=== PATIENT | female | born 1950 | race American Indian/Alaskan Native ===

== ENCOUNTER 2017-12-24 15:47 | Emergency (ER) | payer OTHER, BC ==
[2017-12-24 15:55] VITALS: BP 151/87; PULSE 98; TEMP 98.5; BMI 26.5
--- NOTE | 2017-12-24 15:55 | PDOC ---
Rapid Medical Evaluation Time Seen by Provider: 12/24/17 15:53 Medical Evaluation: Allergies Allergy/AdvReac Type Severity Reaction Status Date / Time No Known Drug Allergies Allergy Verified 12/24/17 15:52 12/24/17 15:53 The patient presents with a chief complaint of: L back/side pain. Pt. states currently being treated for an upper respiratory infection and states that she has been coughing a lot. Productive cough. Took two percocet with some relief of the pain. Denies dysuria I have performed a brief in-person evaluation of this patient; Pertinent physical exam findings: ambulatory, in no respiratory distress, TTP L mid back/side. No CVA tenderness I have ordered the following: Nothing The patient will proceed to the ED for further evaluation.
--- NOTE | 2017-12-24 16:59 | PDOC ---
History of Present Illness - General Chief Complaint: Pain Stated Complaint: PAIN/ BACK, SIDE Time Seen by Provider: 12/24/17 15:53 History Source: Patient Exam Limitations: No Limitations - History of Present Illness Initial Comments: 12/24/17 16:54 Patient is a 67-year-old female with history of high cholesterol, anemia and asthma reports having productive cough for 5 days was seen at PMD started on Augmentin and prednisone tapered dose for 5 days patient reports increased coughing and developed pain to left lateral ribs reproduced with movement. Patient denies any pain at rest, no shortness of breath, no chest pain. Has increased cough and when coughing has to brace side. Denies any trauma. Allergies: No known allergies Medications: See medication list Family History: Non-contributory Social History: Denies smoking, alcohol use, or IVDU Review of Systems GENERAL/CONSTITUTIONAL: [No fever or chills. No weakness. No weight change.] HEAD, EYES, EARS, NOSE AND THROAT: [No change in vision. No ear pain or discharge. No sore throat. ] CARDIOVASCULAR: [No chest pain or shortness of breath.] RESPIRATORY: Moist cough, no wheezing, or hemoptysis.] GASTROINTESTINAL: [No nausea, vomiting, diarrhea or constipation. No rectal bleeding.] GENITOURINARY: [No dysuria, frequency, or change in urination.] MUSCULOSKELETAL: [No joint or muscle swelling or pain. No neck or back pain. There is left lateral torso pain, palpation of pain to ribs] SKIN AND BREASTS: [No rash or easy bruising.] NEUROLOGIC: [No headache, vertigo, loss of consciousness, or loss of sensation.] PSYCHIATRIC: [No depression or anxiety.] ENDOCRINE: [No increased thirst. No abnormal weight change.] HEMATOLOGIC/LYMPHATIC: [No anemia, easy bleeding, or history of blood clots.] ALLERGIC/IMMUNOLOGIC: [No hives or skin allergy. No latex allergy.] Physical Exam: GENERAL: [The patient is awake, alert, and fully oriented, in no acute distress. ] HEAD: [Normal with no signs of trauma.] EYES: [Pupils equal, round and reactive to light, extraocular movements intact, sclera anicteric, conjunctiva clear.] ENT: [Ears normal, nares patent, oropharynx clear without exudates. Moist mucous membranes. No uvula deviation] NECK: [Normal range of motion, supple without lymphadenopathy, JVD, or masses.] LUNGS: [Rhonchi, noted on examination no wheezing, no crackles. Decreased at left base. HEART: [Regular rate and rhythm, normal S1 and S2 without murmur, rub or gallop. ] ABDOMEN: [Soft, nontender, normoactive bowel sounds. No guarding, no rebound. No masses. No bruising or abrasions] MUSCULOSKELETAL: [Normal range of motion, no edema. No clubbing or cyanosis. No cords, erythema, or tenderness. No CVA Tenderness with fist outpatient, pain to left lateral ribs on palpation during examination..] NEUROLOGICAL: [Cranial nerves II through XII grossly intact. Normal speech, normal gait.] SKIN: [Warm, Dry, normal turgor, no rashes or lesions noted.] Past History - Past Medical History Allergies/Adverse Reactions: Allergies Allergy/AdvReac Type Severity Reaction Status Date / Time No Known Drug Allergies Allergy Verified 12/24/17 15:52 Home Medications: Ambulatory Orders Ascorbate Calcium [Vitamin C] 1,000 mg PO DAILY PRN 05/29/16 Calcium Carbonate/Vitamin D3 [Calcium 600-Vit D3 200 Tablet] 1 each PO DAILY 11/12 Fluticasone/Salmeterol [Advair 250-50 Diskus] 1 each IH BID 05/29/16 Multivit-Min/FA/Lycopen/Lutein [Centrum Silver Tablet] 1 each PO DAILY 05/29/16 Simvastatin [Zocor -] 10 mg PO HS 06/24/16 Ferrous Sulfate [Feosol] 325 mg PO BID PRN 06/26/17 Albuterol Sulfate Inhaler - [Ventolin HFA Inhaler -] 1 - 2 inh PO Q4H #1 inhaler 12/24/17 Azithromycin [Zithromax 250mg Tablets -] 250 mg PO UTDICT #6 tab 12/24/17 Prednisone [Deltasone] 20 mg PO DAILY #5 tablet 12/24/17 Promethazine HCl [Phenergan Plain 6.25 MG/5 ML -] 5 ml PO QID #40 ml 12/24/17 Anemia: Yes Asthma: Yes Cancer: No Cardiac Disorders: No CVA: No COPD: No CHF: No Dementia: No Diabetes: No GI Disorders: No Disorders: No HTN: No Hypercholesterolemia: Yes Liver Disease: No Seizures: No Thyroid Disease: No - Surgical History Abdominal Surgery: Yes (colon) Appendectomy: No Cardiac Surgery: No Cholecystectomy: No Lung Surgery: No Neurologic Surgery: No Orthopedic Surgery: No - Suicide/Smoking/Psychosocial Hx Smoking Status: No Smoking History: Never smoked Have you smoked in the past 12 months: No Number of Cigarettes Smoked Daily: 0 Information on smoking cessation initiated: No Hx Alcohol Use: No Drug/Substance Use Hx: No Substance Use Type: None Hx Substance Use Treatment: No *Physical Exam - Vital Signs Last Vital Signs Temp Pulse Resp BP Pulse Ox 98.5 F 98 H 18 151/87 100 12/24/17 15:52 12/24/17 15:52 12/24/17 15:52 12/24/17 15:52 12/24/17 15:52 ED Treatment Course - RADIOLOGY Radiology Studies Ordered: Category Date Time Status CHEST PA & LAT [RAD] Stat Radiology 12/24/17 16:46 Ordered RIBS-LEFT SIDE [RAD] Stat Radiology 12/24/17 16:46 Ordered Medical Decision Making - Medical Decision Making 12/24/17 16:59 A/P: Patient with cough, now with left lateral torso pain, rib pain only reproducible with coughing and movement. Will perform x-ray of chest rule out pneumonia and rib x-ray to rule out fracture. Urinalysis assess for blood. 12/24/17 18:57 X-rays negative for acute fracture no cardiopulmonary disease. Combivent given, Toradol for pain, will reevaluate Patient reports decreased pain after Toradol will DC patient on azithromycin. Motrin for pain, albuterol inhaler, promethazine for cough. Will change prednisone to 20 mg by mouth daily for 5 days. I discussed the physical exam findings, ancillary test results and final diagnoses with the patient. I answered all of the patient's questions. The patient was satisfied with the care received and felt comfortable with the discharge plan and treatment plan. The patient will call Wednesday to arrange follow-up and will return to the Emergency Department with any new, persistent or worsening symptoms. *DC/Admit/Observation/Transfer Diagnosis at time of Disposition: Musculoskeletal pain, Cough - Discharge Dispostion Disposition: HOME Condition at time of disposition: Stable Admit: No - Prescriptions Prescriptions: Albuterol Sulfate Inhaler - [Ventolin HFA Inhaler -] 1 - 2 inh PO Q4H #1 inhaler Azithromycin [Zithromax 250mg Tablets -] 250 mg PO UTDICT #6 tab Prednisone [Deltasone] 20 mg PO DAILY #5 tablet Promethazine HCl [Phenergan Plain 6.25 MG/5 ML -] 5 ml PO QID #40 ml - Referrals Referrals: Chuck Ho MD [Primary Care Provider] - - Patient Instructions - Post Discharge Activity
[2017-12-24 17:07] LABS: URINE APPEARANCE CLEAR; URINE BILIRUBIN NEGATIVE (<2.0 mg/dL); URINE BLOOD NEGATIVE (NEGATIVE); URINE COLOR YELLOW; URINE GLUCOSE (UA) 3+ (NEGATIVE); URINE KETONE TRACE (NEGATIVE); URINE LEUK ESTERASE NEGATIVE (NEGATIVE); URINE NITRITE NEGATIVE (NEGATIVE); URINE PROTEIN NEGATIVE (NEGATIVE); URINE UROBILINOGEN NEGATIVE mg/dL (0.2-1.0)
[2017-12-24] MEDS ORDERED: KETOROLAC TROMETHAMINE 60 MG/2 ML VIAL IM ONE (18:43)
[2017-12-24] MEDS ORDERED: KETOROLAC TROMETHAMINE 60 MG/2 ML VIAL ONE (18:49)
[2017-12-24] MEDS ORDERED: ALBUTEROL SO4 2.5/IPRATROPIUM 0.5 INH SOL 3 ML VIAL.NEB. NEB ONE (18:56)
== END 2017-12-24 19:55 | disposition home or self-care (01) ==
LOC: JERFT 15:47
PROC: 3E0333Z Introduction of Anti-inflammatory into Peripheral Vein, Percutaneous Approach (ICD-10-PCS; principal; 2017-12-24)
PROC: 3E0F7GC Introduction of Other Therapeutic Substance into Respiratory Tract, Via Natural or Artificial Opening (ICD-10-PCS; 2017-12-24)
DX: R05 Cough (principal)
CPT/HCPCS: 71046-TC-FY; 71101-TC-FY; 81003; 94640; 96373; 99281-25

== ENCOUNTER 2021-03-07 04:41 | Day surgery (SDC) | payer OTHER, BC ==
[2021-03-04 12:38] VITALS: BMI 25.1
[2021-03-07] MEDS ORDERED: DESFLURANE GAS 240 ML BOTTLE IH ONE (06:53)
[2021-03-07] MEDS ORDERED: ACETAMINOPHEN INJECTION 100 ML IVPB ONE ×2 (06:53→09:23)
[2021-03-07] MEDS ORDERED: ceFAZolin SODIUM 1 GM VIAL ONE ×2 (07:01→09:14)
[2021-03-07] MEDS ORDERED: LIDOCAINE HCL/PF 2% SDV 5ML VIAL ONE ×2 (07:01→09:14)
[2021-03-07] MEDS ORDERED: LIDOCAINE HCL 2% JELLY (5 ML/TUBE) ONE ×2 (07:01→09:14)
[2021-03-07] MEDS ORDERED: ROCURONIUM BROMIDE 50 MG/5 ML SYRINGE ONE (07:03)
[2021-03-07] MEDS ORDERED: PROPOFOL 20 ML ONE ×3 (07:03)
[2021-03-07] MEDS ORDERED: SUCCINYLCHOLINE CHLORIDE 200 MG/10 ML SYRINGE ONE ×2 (07:03→08:42)
[2021-03-07] MEDS ORDERED: EPHEDRINE SULFATE/0.9% NACL/PF 50 MG/10 ML SYRINGE NR ONE ×2 (07:03→08:42)
[2021-03-07] MEDS ORDERED: NEOSTIGMINE METHYLSULFATE 0.5 MG/ML - 10 ML MDV ONE (07:04)
[2021-03-07] MEDS ORDERED: fentaNYL CITRATE 250 MCG/5 ML VIAL ONE (07:06)
[2021-03-07] MEDS ORDERED: KETAMINE HCL 200 MG/20 ML VIAL ONE (07:06)
[2021-03-07] MEDS ORDERED: BUPIVACAINE LIPOSOME/PF (EXPAREL) 266 MG/20 ML VIAL ONE (07:08)
[2021-03-07] MEDS ORDERED: BUPIVACAINE HCL/PF 0.5% (5MG/ML) 10 ML VIAL ONE (07:08)
[2021-03-07] MEDS ORDERED: GLYCOPYRROLATE 0.2 MG/1 ML VIAL ONE (07:08)
[2021-03-07] MEDS ORDERED: MIDAZOLAM HCL 2 MG/2 ML SINGLE DOSE VIAL ONE ×2 (07:09)
[2021-03-07] MEDS ORDERED: DEXMEDETOMIDINE HCL 200 MCG/2 ML IVPB ONE (07:13)
[2021-03-07] MEDS ORDERED: ceFAZolin SODIUM 1 GM VIAL IVPB ONE (08:35)
[2021-03-07] MEDS ORDERED: BACITRACIN 15 GM TUBE TOPICAL OINTMENT ONE (11:54)
[2021-03-07] MEDS ORDERED: BACITRACIN 15 GM TUBE TOPICAL OINTMENT TP ONE (11:56)
[2021-03-07] MEDS ORDERED: oxyCODONE HCL 5 MG TABLET PO PRN (13:13)
[2021-03-07] MEDS ORDERED: ONDANSETRON 4 MG/2 ML VIAL IVPUSH PRN (13:13)
[2021-03-07] MEDS ORDERED: LACTATED RINGERS SOLUTION 1,000 ML IV SCH (13:15)
[2021-03-07] MEDS ORDERED: oxyCODONE HCL 5 MG TABLET ONE (14:50)
[2021-03-07] MEDS ORDERED: oxyCODONE HCL 5 MG TABLET PO ONE (14:55)
[2021-03-07 17:14] VITALS: BP 150/82; PULSE 76; TEMP 97.8
== END 2021-03-07 16:50 | disposition home or self-care (01) ==
LOC: JASU-SURG 04:41
PROVIDERS: ATTEND Surgery
PROC: 8E0W4CZ Robotic Assisted Procedure of Trunk Region, Percutaneous Endoscopic Approach (ICD-10-PCS; 2021-03-07)
PROC: 0WUF4JZ Supplement Abdominal Wall with Synthetic Substitute, Percutaneous Endoscopic Approach (ICD-10-PCS; principal; 2021-03-07 08:00)
DX: K43.2 Incisional hernia without obstruction or gangrene (principal); E11.9 Type 2 diabetes mellitus without complications; I10 Essential (primary) hypertension; J45.909 Unspecified asthma, uncomplicated; Z79.84 Long term (current) use of oral hypoglycemic drugs
CPT/HCPCS: 82962; 94760; J0131